=== PATIENT | female | born 1965 | race Caucasian/White ===

== ENCOUNTER 2018-04-11 07:54 | Observation (INO) | payer BC ==
--- NOTE | 2018-04-10 12:50 | PDGENHP ---
History and Physical History and Physical: Assessment and Plan: 1. Post-menopausal bleeding Cata has postmenopausal bleeding secondary to uterine fibroids which likely have a submucous component. She has failed medical management. Additionally, she has stress urinary incontinence with which also has been resistant to pelvic strengthening exercises. We reviewed all conservative and surgical options. At the end of our discussion she wishes to schedule surgical treatment. This would be a robotic assisted total laparoscopic hysterectomy and mid urethral sling procedure. She has met her deductible and would like to try to schedule this before the end of the year. Unfortunately, I do not believe I have any more spaces for additional surgical procedures before May. As result, I have given her the name and phone number of Dr. Wiley Waldrop in [place] who could perform both these procedures and hopefully do so before May 15. She will check to see if he is an in-network provider for her plan. 2. Intramural leiomyoma of uterus 3. Female stress incontinence Subjective: Patient ID: Cata Hartley is a 53 y.o. female who presents to [facility] for surgical consultation. HPI Cata Hartley presents for a preoperative visit. She is scheduled for a robotic assisted hysterectomy/ BSO, US Lig colpopexy, mid urethral sling, and cystoscopy. The risks, benefits, and alternatives were presented and informed consent was obtained. 40 minutes of this 40 minute appointment was spent counceling, reviewing the procedure in detail, and discussing the preoperative and postoperative instructions. Below is a copy of our prior visit note. Cata is a 52-year-old para [address] woman [address] referred by Dr[address] Klein for surgical consultation. She has been suffering from postmenopausal bleeding which has not abated. A pelvic ultrasound showed multiple uterine fibroids measuring up to 2.7 cm. Her endometrial biopsy was benign. Her Pap smear was normal last January. She remains on estrogen and progesterone for hormone replacement and feels significantly better while on it. She and Dr. lKein have reviewed all conservative and surgical options. At the end of the discussion she wished to schedule a hysterectomy. Although she normally may be a candidate for a vaginal approach, she had a demise with uterine perforation during the evacuation many years ago. Apparently a laparotomy was required to repair the hysterotomy. As a result, she is at risk for having bowel adhered to the fundus of the uterus. Additionally, she suffers from stress urinary incontinence, leaking with coughing, laughing, and sneezing. Pelvic strengthening exercises have been unsuccessful in controlling her leaking. As a result, she was referred to me for discussion of a robotic hysterectomy and a mid urethral sling procedure. Cata is not currently sexually active due to lack of a partner. She is . 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 PastMedicalHistory Past Medical History: Diagnosis Date Allergy to pollen Chest pain Hypertension Migraines Myocardial infarction (HC code) 05/2013 Nonspecific vaginitis Pericarditis Urinary tract infection Varicella PastSurgicalHistory Past Surgical History: Procedure Laterality Date Cervical conization loop electrode excision DILATION AND CURETTAGE OF UTERUS Dilation of female urethra Hysterorrhaphy during PREVIOUS SURGERIES WISDOM TOOTH EXTRACTION CURRENT MEDICATIONS: Current Outpatient Medications Medication Sig amLODIPine (NORVASC) 5 mg tablet Take 1 tablet by mouth daily. ergocalciferol, vitamin D2, (VITAMIN D PO) hydroCHLOROthiazide (HYDRODIURIL) 25 mg tablet TAKE 1 TABLET BY MOUTH EVERY DAY lisinopril (PRINIVIL,ZESTRIL) 40 mg tablet Take 1 tablet by mouth daily. MAGNESIUM PO medroxyPROGESTERone (PROVERA) 2.5 mg tablet TAKE 1 TABLET BY MOUTH DAILY multivitamin (HEXAVITAMIN) per tablet Take 1 tablet by mouth daily. PREMARIN 0.625 mg tablet TAKE 1 TABLET BY MOUTH DAILY topiramate (TOPAMAX) 25 mg tablet Take 2 tablets by mouth nightly at bedtime. VIT A/VIT C/VIT E/ZINC/COPPER (OCUVITE PRESERVISION PO) No current facility-administered medications for this visit. ALLERGIES: No known drug allergies and Other I have reviewed, verified and agree with the past medical, surgical, , family, social and ROS history as documented by the RN today. Objective: Vital Signs: There were no vitals taken for this visit. Physical Exam Gen: This is an alert, well developed woman in no distress. Neuro: She moves all extremities. Psych: She is appropriate, oriented, with normal affect. Neck: No thyroid enlargement, adenopathy, or tenderness. Lungs: Clear to ascultation, no wheezes or rales. Heart: Regular rate and rhythm without obvious murmurs. Abdomen: Soft, non-tender, without guarding, rebound, or masses. Extremities: No edema or cyanosis. Pelvic: Normal external genitalia. Non-gaping introitus, vagina without discharge, adequately estrogenized, no significant prolapse. Cervix without lesions or discharge. Uterus top-normal sized, mobile, non-tender. Adnexa non- tender without enlargement. There is mild anterior wall prolapse with a mobile urethra. She has obvious leakage of urine with strong coughing. DATA: I have reviewed the pertinent medical records. Result Impression IMPRESSION: 1. Fibroid uterus, with multiple leiomyomas obscuring the endometrium for adequate ultrasound evaluation. 2. Nonvisualization of the ovaries by ultrasound. For this patient, the endometrium and ovaries would be best assessed by pelvic ultrasound with and without gadolinium. Report E-Signed By: Rosalie Badillo MD at 09/04/2017 5:28 PM WSN:[id number] Result Narrative EXAMINATION: Pelvic ultrasound HISTORY: Break through bleeding on hormone replacement therapy. COMPARISON: Pelvic ultrasound 03/18/2015 PROCEDURE: Transabdominal and transvaginal ultrasound of the pelvis. FINDINGS: Uterus position and size: Anteverted uterus measures 9 x 5 x 4 cm Myometrium: Very heterogeneous myometrium, obscuring most of the endometrium. The myometrium is mostly replaced by leiomyomatous change. Largest leiomyomas include a posterior uterine body fibroid measuring 2.7 cm. A left uterine body leiomyoma measures 2.4 cm, and abuts the endometrium. Endometrium: Most of the endometrium and the endometrium-myometrium interface is obscured. Cervix: Negative Nonvisualization by transvaginal and transabdominal ultrasound of the ovaries and adnexa. Free fluid: None Final Diagnosis Endometrium, biopsy: Inactive with ciliated cell metaplasia No evidence of hyperplasia or malignancy Clinical History Postmenopausal bleeding Microscopic Description Microscopic examination performed. Gross Description The specimen is received in formalin in a single container labeled with the patient's name and "endometrial biopsy" and consists of a 1.2 x 1.0 x 0.7 cm aggregate of domínguez mucoid material, in toto dp/10/31/2017 Final Diagnosis Reviewed and Interpreted By Mike Hawthorne M.D. ([id number]) Electronically Signed, 11/01/2017 TIME/COMMUNICATION: I personally spent a total of 45 minutes. Of that 30 minutes was counseling/ coordination of patient's care. See my note above for details. Jef Gaming MD Board Certified Female Pelvic Medicine and Reconstructive Surgery Director of Minimally Invasive Gynecologic Surgery, [facility] Surgeon in Minimally Invasive Gynecologic Surgery [facility] Surgeon in Robotic Surgery
[2018-04-11] MEDS ORDERED: ceFAZolin 2 GM/DEXTROSE 100 ML IV ONE (07:56)
[2018-04-11] MEDS ORDERED: ACETAMINOPHEN 500 MG TAB PO ONE (07:56)
[2018-04-11] MEDS ORDERED: PHENAZOPYRIDINE HCL 200 MG TAB PO ONE (07:56)
[2018-04-11] MEDS ORDERED: GABAPENTIN 300 MG CAP PO ONE (07:56)
[2018-04-11] MEDS ORDERED: LR 1,000 ML IV ONE (07:57)
[2018-04-11] MEDS ORDERED: LIDOCAINE 1% 2 ML INJ ID PRN (07:57)
--- NOTE | 2018-04-11 08:13 | PDANEPAE ---
ANE Past Medical History - Cardiovascular History Hx Hypertension: Yes Hx Arrhythmias: No Hx Chest Pain: No Hx Coronary Artery / Peripheral Vascular Disease: No Hx CHF / Valvular Disease: No Hx Palpitations: No Cardiovascular History Comment: hx of pericarditis 4 or 5 yrs ago. pcp monitors bp medications currently - Pulmonary History Hx COPD: No Hx Asthma/Reactive Airway Disease: No Hx Recent Upper Respiratory Infection: No Hx Oxygen in Use at Home: No Hx Sleep Apnea: No Sleep Apnea Screening Result - Last Documented: Negative - Neurologic History Hx Cerebrovascular Accident: No Hx Seizures: No Hx Dementia: No Neurologic History Comment: migraines - Endocrine History Hx Diabetes: No - Renal History Hx Renal Disorders: No - Neurological & Psychiatric Hx Hx Neurological and Psychiatric Disorders: No - Cancer History Hx Cancer: No - Congenital Disorder History Hx Congenital Disorders: No - GI History Hx Gastrointestinal Disorders: No - Other Health History Other Health 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 - Chronic Pain History Chronic Pain: No - Surgical History Prior Surgeries: 1998 d&c with perforated uterus repair ANE Review of Systems Review of Systems: - Exercise capacity Exercise capacity: >=4 METS METS (RN): 4 METS ANE Patient History - Allergies Allergies/Adverse Reactions: No Allergies [NKDA] Allergy (Verified 04/10/18 12:51) - Home Medications Home medications: home medication list seen and reviewed Home Medications: Amlodipine Besylate 04/10/18 [Last Taken 04/11/18 06:45] Herbals/Supplements -Info Only 04/10/18 [Last Taken 04/10/18] Hydrochlorothiazide 04/10/18 [Last Taken 1 Day Ago ~04/10/18] Lisinopril 04/10/18 [Last Taken 1 Day Ago ~04/10/18] PREMARIN 04/10/18 [Last Taken 1 Day Ago ~04/10/18] Progesterone 04/10/18 [Last Taken 1 Day Ago ~04/10/18] Topiramate 04/10/18 [Last Taken 1 Day Ago ~04/10/18] - NPO status NPO Status: no food or drink >8 hours - Smoking Hx Smoking Status: Never smoked - Family Anes Hx Family Hx Anesthesia Complications: none ANE Labs/Vital Signs - Labs Result Diagrams: 04/11/18 08:14 04/11/18 08:14 - Vital Signs Height: 157.48 cm Weight: 80.286 kg ANE Physical Exam - Airway Neck exam: FROM Mallampati Score: Class 3 Mouth exam: normal dental/mouth exam - Pulmonary Pulmonary: clear to auscultation - Cardiovascular Cardiovascular: regular rate and rhythym - ASA Status ASA Status: II
[2018-04-11] MEDS ORDERED: BUPIVACAINE/EPI 0.5% 30 ML SDV ONE (08:40)
[2018-04-11] MEDS ORDERED: MIDAZOLAM 2 MG/2 ML VIAL IVP ONE (09:25)
--- NOTE | 2018-04-11 09:27 | PDHPUP ---
History & Physical Update H&P update statement: This history and physical update is based on an assessment of the patient which was completed after admission or registration (within 24 hours), but prior to the surgery/procedure. H&P update: H&P reviewed & patient examined, no change in patient's condition since H&P completed
[2018-04-11] MEDS ORDERED: DEXMEDETOMIDINE HCL 400 MCG in NS 100 ML IV SCH (09:30)
[2018-04-11] MEDS ORDERED: fentaNYL 100 MCG/2 ML INJ ONE (09:30)
[2018-04-11] MEDS ORDERED: HYDROmorphONE/DILAUDID 2 MG/ML INJ ONE ×2 (09:30→11:48)
[2018-04-11] MEDS ORDERED: PROPOFOL 200 MG/20 ML VIAL ONE (09:31)
[2018-04-11] MEDS ORDERED: ROCURONIUM 50 MG/5 ML VIAL ONE (09:33)
[2018-04-11] MEDS ORDERED: LIDOCAINE 2% 100 MG/5 ML SYR ONE (09:33)
[2018-04-11] MEDS ORDERED: DEXAMETHASONE 4 MG/ML VIAL ONE (10:15)
[2018-04-11] MEDS ORDERED: METOCLOPRAMIDE 10 MG/2 ML VIAL ONE (10:15)
--- NOTE | 2018-04-11 10:31 | POSTANESTH ---
Post Anesthetic Evaluation Cardiovascular Status: Normal, Stable Respiratory Status: Normal, Stable Level of Consciousness/Mental Status: Can Participate in Eval Pain Control: Adequate, Prn Tx Ordered Nausea/Vomiting Control: Adequate, Prn Tx Ordered Complications Possibly Related to Anesthesia: None Noted
[2018-04-11] MEDS ORDERED: KETOROLAC 30 MG/1 ML SDV ONE ×2 (10:40→11:47)
[2018-04-11] MEDS ORDERED: ONDANSETRON 4 MG/2 ML VIAL ONE (10:40)
[2018-04-11] MEDS ORDERED: DIAZEPAM 5 MG/ML 1 ML SYR IVP PRN (10:42)
[2018-04-11] MEDS ORDERED: ONDANSETRON 4 MG/2 ML VIAL IVP PRN ×2 (10:42→11:27)
[2018-04-11] MEDS ORDERED: PROMETHAZINE HCL 25 MG/ML INJ IVP PRN ×2 (10:42→11:26)
[2018-04-11] MEDS ORDERED: PHENYLEPHRINE HCL 100 MCG/ML SYR IVP PRN (10:42)
[2018-04-11] MEDS ORDERED: DEXAMETHASONE 4 MG/ML VIAL IVP PRN (10:42)
[2018-04-11] MEDS ORDERED: LABETALOL HCL 20 MG/4 ML INJ IVP PRN (10:42)
[2018-04-11] MEDS ORDERED: oxyCODONE IR 5 MG TAB PO PRN (10:42)
[2018-04-11] MEDS ORDERED: LR 500 ML IV PRN (10:42)
[2018-04-11] MEDS ORDERED: NALOXONE HCL 0.4 MG/ML INJ IVP PRN (10:42)
[2018-04-11] MEDS ORDERED: fentaNYL 100 MCG/2 ML INJ IVP PRN (10:42)
[2018-04-11] MEDS ORDERED: ALBUTEROL 3 ML DEYVIAL IH PRN (10:42)
[2018-04-11] MEDS ORDERED: NEOSTIGMINE METHYLSULFATE 5 MG/5 ML SYR ONE (10:47)
[2018-04-11] MEDS ORDERED: GLYCOPYRROLATE 0.2 MG/1 ML VIAL ONE (10:47)
--- NOTE | 2018-04-11 11:24 | POSTOPPROG ---
Post Op Note Date of Operation: 04/11/18 Surgeon: Jef Gaming Door Attendant: Ashly Horne Anesthesia: GET(General Endotracheal) Pre-op Diagnosis: uterine fibroids Post-op Diagnosis: same Procedure: Robotic hyst/BSO, US Lig colpopexy, TOT, cysto Findings: No ureter injury Inf/Abcess present in the surg proc area at time of surgery?: No EBL: Minimal Complications: none
[2018-04-11] MEDS ORDERED: ONDANSETRON DISINTEGRATING 4 MG TAB PO PRN (11:27)
[2018-04-11] MEDS ORDERED: LR 1,000 ML IV SCH (11:30)
[2018-04-11] MEDS: HYDROmorphONE/DILAUDID 2 MG/ML INJ IVP PRN ×2 (11:52→12:23)
[2018-04-11] MEDS: KETOROLAC 30 MG/1 ML SDV IVP SCH ×2 (11:54→18:03)
--- NOTE | 2018-04-11 12:48 | GOP ---
DATE OF OPERATION: 04/11/2018 SURGEON: Jef Gaming MD RENEWALS REPRESENTATIVE: Ashly Horne CFA. ANESTHESIA: General. PREOPERATIVE DIAGNOSIS: 1. Uterine fibroids. 2. Postmenopausal bleeding. 3. Stress urinary incontinence. 4. Second-degree uterine prolapse. POSTOPERATIVE DIAGNOSIS: 1. Uterine fibroids. 2. Postmenopausal bleeding. 3. Stress urinary incontinence. 4. Second-degree uterine prolapse. PROCEDURE PERFORMED: 1. Robotic-assisted total laparoscopic hysterectomy, bilateral salpingo-oophorectomy. 2. Uterosacral ligament colpopexy. 3. Mid urethral sling. 4. Cystoscopy. FINDINGS: SPECIMENS: Uterus, bilateral tubes, and ovaries. ESTIMATED BLOOD LOSS: Scant. DESCRIPTION OF PROCEDURE: Cata was taken to the operating room where she was identified. General anesthesia was administered and found to be adequate. She was placed in the lithotomy position. Pre pared and draped in normal sterile fashion. A Hamilton catheter was placed in her bladder. A Leveler napaimute rine manipulator was placed into the endometrial cavity and sutured to the cervix. A 1 cm infraumbilical incision was made with a scalpel. The Veress needle with the CO2 gas flowing w as advanced into the peritoneal cavity. The abdomen was then insufflated with carbon dioxide gas. T he 12 mm trocar followed by the laparoscope were then inserted. The upper abdomen was unremarkable. Two lateral ports were placed in the right and 1 left under direct visualization. She then was plac ed in Trendelenburg position and the da Julia robot docked on the left side. The instruments were th en brought into the abdominal cavity under direct visualization. Within the pelvis was an enlarged f ibroid uterus. The tubes and ovaries were unremarkable. The left round ligament was divided. The a nterior leaf of the broad ligament was incised towards the bifurcation of the left common iliac vesse ls. A window was created anterior to the left ureter to skeletonize the infundibulopelvic vessels. They were then cauterized and transected. The anterior leaf of the broad ligament was then incised o monroe the left uterine vessels and across the cervix. The bladder was gently dissected off the cervix and upper vagina. The left uterine vasculature was then cauterized and transected. The exact same p rocedure was performed on the patient's right side. A circumferential colpotomy incision was then ma de with the hot michael and the specimen removed through the vagina. The vaginal cuff was closed with a running suture of 0 V-Loc 180. A bilateral uterosacral ligament c olpopexy was performed by attaching the lateral aspects of the vaginal cuff to the ipsilateral uteros acral ligaments near the coccygeal-sacrospinous ligament complexes. The pelvis was then irrigated wi th sterile saline, and hemostasis was present. The robot was then undocked. The fascia was closed w ith 0 Vicryl, skin with 4-0 Monocryl. A mid urethral incision was then made with a scalpel. Tunnels were created bilaterally out toward th e obturator internus muscles. Skin incisions were made over the obturator notches. The Halo trocar was placed through the left skin incision, redirected around the ischial pubic rami and out through t he vaginal incision using a vaginal finger as a guide. The sling was then attached and brought out a long the same course. The exact same procedure was performed on the patient's right side. The sling was then adjusted to allow a small mid urethral gap. The vaginal epithelium was closed with 2-0 Leonardo ryl, skin with 4-0 Monocryl. Cystoscopy was then performed. Both ureters had vigorous jets of urine. There was no evidence of bl adder nor urethral injury seen. There was no sutures, nor mesh was seen within the bladder nor ureth ra. Anesthesia was reversed and the patient taken to the PACU awake, in stable condition. COMPLICATIONS: None. DISPOSITION: Patient stable to PACU. /[id number]/MODL
[2018-04-11] MEDS: HYDROmorphONE/DILAUDID 1 MG/ML INJ IVP PRN ×2 (13:50→15:58)
[2018-04-11] MEDS: HYDROCODONE/APAP 5/325 TAB PO PRN ×2 (18:04→21:40)
[2018-04-11] MEDS: DOCUSATE SODIUM 100 MG CAP PO SCH (19:27)
[2018-04-11] MEDS: SIMETHICONE 80 MG TAB CHEW PO SCH ×2 (19:28→21:18)
[2018-04-11] MEDS ORDERED: TOPIRAMATE 25 MG TAB PO SCH (21:00)
[2018-04-11] MEDS: diphenhydrAMINE 25 MG CAP PO PRN (23:25)
[2018-04-12] MEDS: KETOROLAC 30 MG/1 ML SDV IVP SCH ×2 (00:04→05:37)
[2018-04-12] MEDS: diphenhydrAMINE 25 MG CAP PO PRN (00:17)
[2018-04-12] MEDS: HYDROCODONE/APAP 5/325 TAB PO PRN ×4 (01:33→13:07)
[2018-04-12 06:14] LABS: PLATELET COUNT 205 10^3/uL (150-400)
[2018-04-12] MEDS: SIMETHICONE 80 MG TAB CHEW PO SCH ×2 (09:13→12:15)
[2018-04-12] MEDS: DOCUSATE SODIUM 100 MG CAP PO SCH (09:13)
[2018-04-12 12:24] VITALS: BP 107/72
[2018-04-12] MEDS ORDERED: IBUPROFEN 800 MG TAB PO SCH ×3 (13:15→18:00)
--- NOTE | 2018-04-12 13:59 | GDS ---
DISCHARGE DIAGNOSES: 1. Uterine fibroids. 2. Postmenopausal bleeding. 3. Stress urinary incontinence. PROCEDURES: 1. Robotic-assisted total laparoscopic hysterectomy, bilateral salpingo-oophorectomy. 2. Uterosacral ligament colpopexy. 3. Transobturator sling. 4. Cystoscopy. HISTORY: The patient is a 53-year-old female with persistent postmenopausal bleeding from a submucou s component of her uterine fibroids. She was taken to the operating room on 04/11/2018, where she un derwent the above-mentioned procedures without complications. Her postoperative course was uneventful. The morning after surgery, she was ambulating, voiding, and tolerating a general diet. She was discharged home on postoperative day #1 in good condition. Medi cations included Stella and ibuprofen for pain. She was to follow up in the office 2 weeks after disc harge. /[id number]/MODL
== END 2018-04-12 13:50 | disposition home or self-care (01) ==
LOC: FSGY 07:54 → F3N 11:27 → FOB 13:25
PROVIDERS: ADMIT Obstetrics & Gynecology; ATTEND Obstetrics & Gynecology
DX: D25.1 Intramural leiomyoma of uterus (principal); N95.0 Postmenopausal bleeding; N39.3 Stress incontinence (female) (male); N81.2 Incomplete uterovaginal prolapse; I10 Essential (primary) hypertension; G43.909 Migraine, unspecified, not intractable, without status migrainosus; Z87.440 Personal history of urinary (tract) infections; Z79.890 Hormone replacement therapy
CPT/HCPCS: 57288; 57425; 58571; G0378; C1771; J0690; J1100; J1170; J1885; J2001; J2250; J2405; J2704; J2710; J2765; J3010